=== PATIENT | female | born 1960 | race Caucasian/White ===

== ENCOUNTER 2016-08-01 18:15 | Observation (INO) | payer BC ==
--- NOTE | ~2016-08-01 | HP ---
History And Physical [facility] [address] [place]. [address] NAME: DONG DEAN JULY : 60 STATUS : ADM [place] PAT#: [id number] AGE: 56 ADM/REG DATE : 08/01/16 MR#: [id number] REPORT SERV DATE: 08/02/16 DICTATED BY: YVETTE BONE DATE: 08/02/16 REPORT STATUS : Draft TRANSCRIBED BY: MODMelissa DATE: 08/02/16 DATE OF ADMISSION: 08/01/2016 VASCULAR: Yao Mathew M.D. CHIEF COMPLAINT: Atypical chest pain, reproducible on exam. HISTORY OF PRESENT ILLNESS: A 56-year-old white female, who looks older than her stated age, with no known history of CAD, but with known peripheral vascular disease with previous left carotid endarterectomy by Dr. Mathew and scheduled arteriogram on 08/05/[address] 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 The patient and report a "blocked artery" in her right chest. The patient is quite drowsy from previous pain medication. Some history provided by her estranged , who is present at bedside. The patient reports that on 08/01 around 11 a.m., she experienced right-sided chest pain that did not radiate elsewhere. She holds her hand over her right-sided chest, indicating the location. She reports associated shortness of breath, nausea, diaphoresis, and dizziness. Denies belching. At its most intense at home, she rates it a 9/10. At time of interview in the [facility], she rates it a 10/10. She did take aspirin with no improvement in her symptoms. She could not find her nitroglycerin. She describes the pain as "constant" that does not radiate elsewhere. She reports no change in her activity level at home. The discomfort is easily reproducible on exam, eliciting a wince and withdrawal. The patient and her estranged confirm that she has an arteriogram scheduled at [facility] with Dr. Mathew on 08/05, and that has been confirmed on the surgery schedule. The patient reports a personal history of one heart attack with a stent placed to an unknown vessel in [address] Edward at [place]. The patient reports a history of a stroke with no clear deficit. Denies history of DVT or pulmonary embolus. The patient denies any recent fever or chills. No palpitations. No syncopal episodes. Denies PND or orthopnea. ER note indicates that Dr. Mathew was contacted regarding this patient's admission for documented left shoulder pain, but seemingly right shoulder pain given exam. Dr. Cortes has come by the [facility] to review the chart. Unfortunately, no records can easily be located regarding the workup for this upcoming arteriogram through Dr. Mathew's office. I have spoken to their nurse practitioner, Catalina, who confirms arteriogram scheduled for 08/05/2016, and the patient is on the endovascular schedule for that day to arrive at 1145 hours. If discharged home from this hospitalization, the patient will be instructed to keep that appointment. PAST MEDICAL HISTORY: 1. CAD. a. Self-reports [place] x1 and stent to unknown vessel at [place] by Dr. Edward. 2. Peripheral vascular disease. a. Left carotid endarterectomy in 07/[address] Mathew. b. Arteriogram scheduled for 08/05/[address] 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 History And Physical [address] [address] NAME: DONG DEAN JULY : 60 STATUS : ADM [place] PAT#: [id number] AGE: 56 ADM/REG DATE : 08/01/16 MR#: [id number] REPORT SERV DATE: 08/02/16 DICTATED BY: YVETTE BONE DATE: 08/02/16 REPORT STATUS : Draft TRANSCRIBED BY: MODMelissa DATE: 08/02/16 3. Self-reports history of stroke with no deficit. 4. Hypertension. 5. AODM. 6. Chronic kidney disease. a. Has not been followed by Nephrology. b. RANDY on CKD. 7. Unknown cholesterol status. 8. Neuropathy. PAST SURGICAL HISTORY: 1. Right foot surgery twice. 2. Left carotid endarterectomy in 2013. 3. Hysterectomy. 4. Tonsillectomy. 5. Cholecystectomy. SOCIAL HISTORY: She is . She has one child. She has never worked outside the home. She does not exercise. She denies tobacco, alcohol, or illicits. FAMILY HISTORY: No embolic events reported in first-degree relatives. Mother at 68 of Alzheimer's. Father of cirrhosis of the liver at 71. REVIEW OF SYSTEMS: A 14-point review of systems performed, significant for HPI including home blood sugars of 95 to 110 and does not have a sphygmomanometer to check her blood pressure. Otherwise, complete review of systems obtained and negative. ALLERGIES: PENICILLIN, RASH. DIPHENHYDRAMINE, FACIAL SWELLING. ULTRAM, HEADACHE. TORADOL, ITCHING. ZOFRAN, UNKNOWN. HOME MEDICATIONS: Tylenol p.r.n., Xanax 0.5 mg at bedtime, aspirin 81 mg daily, Raquel-Cary p.r.n., Neurontin 400 mg three times daily, Lantus insulin 20 units nightly, lisinopril 5 mg daily, nitroglycerin p.r.n., Icy Hot cream twice daily. PHYSICAL EXAMINATION: VITAL SIGNS: Blood pressure on arrival, right 143/71, left 190/77, this morning 116/56; pulse 64; respirations 20; temperature 97.5; O2 saturation 96% on room air. Height 5 feet 4 inches, weight 162 pounds, BMI 27.8. GENERAL: Cooperative, in no apparent distress. HEENT: Pupils 2 mm. Sclera nonicteric. Nares patent. Moist mucous membranes. No xanthelasma. NECK: Trachea midline. No thyromegaly. No JVD. No bruits. LYMPH: No cervical lymphadenopathy. No supraclavicular lymphadenopathy. CHEST: Tender to palpation on right chest, eliciting wince and withdrawal on exam. RESPIRATORY: Unlabored respirations. Breath sounds clear bilaterally to posterior auscultation. No wheezes or rhonchi. CARDIOVASCULAR: Regular rate. No murmur, rub, or gallop appreciated. Extremities with History And Physical [address] [place]. [address] NAME: DONG DEAN JULY : 60 STATUS : ADM [place] PAT#: [id number] AGE: 56 ADM/REG DATE : 08/01/16 MR#: [id number] REPORT SERV DATE: 08/02/16 DICTATED BY: YVETTE BONE DATE: 08/02/16 REPORT STATUS : Draft TRANSCRIBED BY: MODL DATE: 08/02/16 trace ankle edema. Pedal pulses 1+ and radial pulses 1+ bilaterally. ABDOMEN: Soft, nontender, nondistended. Normal bowel sounds auscultated throughout. No organomegaly. SKIN: Warm, dry extremities. No pallor or cyanosis. PSYCHIATRIC: Appropriate affect. Alert, oriented x3. LABORATORY DATA: Troponin less than 0.02 twice. Potassium 5.1, BUN 47, creatinine 1.92, glucose 145, magnesium 1.8. WBC 11.6, hemoglobin 12.9, hematocrit 38.7, platelet count 307,000. EKG, sinus rhythm, PRWP. Echo, 07/2013, EF 60%, mild diastolic dysfunction. MPI, 09/2014, no ischemia. ASSESSMENT AND PLAN: 1. Atypical chest pain in a patient with multiple risk factors. The patient has been observed in the CPOU overnight to rule out myocardial infarction with serial enzymes and serial EKGs and held n.p.o. We will proceed with a stress test, but with ongoing chest pain, the patient will be evaluated by Dr. Estes prior to stress testing. Given reproducibility and constant pain which seemingly is atypical for coronary artery disease, chest pain protocol may be appropriate. The patient will be discharged home if low risk, no ischemia. The patient does have a planned arteriogram on 08/05/[address] Mtahew for questionable right subclavian steal, although the patient and do not articulate those terms. The patient will follow up with her PCP and Dr. Mathew as appropriate. 2. Planned arteriogram with Dr. Mathew on 08/05/2016, possible right subclavian steal. 3. Acute kidney injury on chronic kidney disease. The patient is not followed by Nephrology. Today's creatinine 1.92, baseline 1.1 to 1.7. We will provide fluid bolus, discontinue SAPNA inhibitor, amlodipine 2.5 mg at discharge, recheck BMP prior to discharge. 4. Unknown cholesterol status. I will check a fasting lipid panel. 5. Hypertension. Monitor blood pressure. Amlodipine 2.5 mg at discharge. Discontinue SAPNA inhibitor given bump in creatinine of 1.92 with upcoming arteriogram and dye exposure planned. MICK/MIMIL Yvette Bone, MSN, SLAB INSPECTOR-BC / [id number] CC: Yvette Bone, MSN, SLAB INSPECTOR- Kenan Jha M.D. History And Physical [address] [address] NAME: DONG DEAN JULY : 60 STATUS : ADM [place] PAT#: [id number] AGE: 56 ADM/REG DATE : 08/01/16 MR#: [id number] REPORT SERV DATE: 08/02/16 DICTATED BY: YVETTE BONE DATE: 08/02/16 REPORT STATUS : Draft TRANSCRIBED BY: MODL DATE: 08/02/16 Yao Mathew II, M.D.
[2016-08-01 13:18] LABS: BASOPHILS 0.5 %; BASOPHILS ABSOLUTE 0.06 10/3/uL (0.0-0.16); EOSINOPHILS 2.3 %; EOSINOPHILS ABSOLUTE 0.27 10/3/uL (0.0-0.53); HEMATOCRIT 38.7 % (36.0-48.0); HEMOGLOBIN 12.9 g/dL (12.0-16.0); IMMATURE GRANULOCYTES 0.4 %; IMMATURE GRANULOCYTES ABSOLUTE 0.05 10/3/uL (0.0-0.11); LYMPHOCYTES 37.7 %; LYMPHOCYTES ABSOLUTE 4.36 10/3/uL (0.67-4.30); MEAN CORPUS HGB CONC 33.3 g/dL (32.0-36.0); MEAN CORPUSCULAR HEMOGLOB 29.1 pg (26.0-34.0); MEAN CORPUSCULAR VOLUME 87.2 fL (80-100); MEAN PLATELET VOLUME 10.4 fL (9.2-13.0); MONOCYTES ABSOLUTE 0.92 10/3/uL (0.21-1.20); NEUTROPHILS 51.1 %; NEUTROPHILS ABSOLUTE 5.89 10/3/uL (2.02-8.40); PLATELET COUNT 307 10/3/uL (150-400); RBC DISTRIBUTION WIDTH 12.9 % (12.0-16.0); RED CELL COUNT 4.44 10/6/uL (4.0-5.6); WHITE BLOOD CELLS 11.6 10/3/uL (4.5-10.5)
[2016-08-01 13:19] LABS: MANUAL DIFF NO %
[2016-08-01 13:27] LABS: PARTIAL THROMBO TIME 29.7 SEC (22.5-37.2); PROTIME (NOT ORD) 13.3 SEC (12.0-14.5)
[2016-08-01 13:38] LABS: BUN (BLOOD UREA NITROGEN) 47 MG/DL (6-23); CALCIUM, SERUM 9.8 MG/DL (8.5-10.4); CHEST PAIN PROFILE TAT 0 Hrs 26 Mins; CHLORIDE, SERUM 97 MMOL/L (96-112); CO2 (CARBON DIOXIDE) 30 MMOL/L (24-34); CREATININE 1.92 MG/DL (0.55-1.02); GFR AFRICAN AMERICAN 33 ML/MIN (>=60); GFR NON AFRICAN AMERICAN 29 ML/MIN (>=60); GLUCOSE, SERUM 145 MG/DL (60-99); POTASSIUM, SERUM 5.1 MMOL/L (3.5-5.3); SODIUM, SERUM 132 MMOL/L (135-148); TROPONIN I <0.02 NG/ML (<0.05)
[~2016-08-01 18:15] MED LIST: *UNABLE1; ACET500CAP PO; AMB5 PO; ANTIBIOTIC RX PO; ASA5GR PO; ASAB PO; ASABAYER PO; ASPERCREME TOP; BAC PO; BIAXIN5 PO; BISR PR; CELEXA20 PO; CORTISPORIN11 OT; COZ50 PO; COZAAR PO; DIL2TAB PO; FLONASE NAS; FLUCON1 PO; GGEXPUD PO; IBU400 PO; INSULIN SYRINGES; K250 PO; LAMICTAL150 MG PO; LANTUS FOR SC; LANTUS SC; LANTUSCART SC; LAXATIVE PO; LEVAQUIN750 MG PO; LEVEMFLXPN SC; LIPITOR10 PO; LIPITOR40 PO; LISINOPRIL PO; LORT7 PO; LORTAB10 PO; MAGOX4 PO; METAMUCIL CAN7 OZ PO; MIRALAXPKT PO; MOBIC15 MG PO; MUCINEX600 MG PO; NEUR300 PO; NEUR600 PO; NEUR800 PO; NORCO1 TA2 PO; NORV5 PO; NOVOLOG SC; NOVOLOG SQ; NOVOLOGMIX SC; NOVOPEN SC; PAX10 PO; PCET PO; PERCOCET1 TA4 PO; PERCOGESIC1 TAB PO; PHENERGAN PO; PR12.5 PO; PREMARIN PO; PRIN10 PO; PRIN2.5 PO; PRIN5 PO; PYR100B PO; PYR200 PO; REG5 PO; STERAPRED DS10 MG; TESS PO; TRILEP150 PO; VITAMIN E OTC PO; X25 PO; X5 PO; XANAX PO; XANAX1 MG PO; XANAX2 MG PO; ZESTRIL10 MG PO; ZOFRAN ODT4 MG PO; ZOL100 PO; [UNRECOGNIZED DRUG - REMARK] PO
[2016-08-01] MEDS ORDERED: X5 PO (19:27)
[2016-08-01] MEDS ORDERED: PRIN5 PO (19:27)
[2016-08-01] MEDS ORDERED: LANTUSCART SC (19:28)
[2016-08-01] MEDS ORDERED: NEUR400 PO (19:28)
[2016-08-01] MEDS ORDERED: ASAB PO (19:29)
[2016-08-01] MEDS ORDERED: ACET500CAP PO (19:29)
[2016-08-01] MEDS ORDERED: ALKA-SELTZER O1 EACH PO (19:30)
[2016-08-01] MEDS ORDERED: ICY HOT CREAM TOP (19:31)
[2016-08-01] MEDS ORDERED: NITROSTAT0.4 MG SL (19:32)
[2016-08-02 13:30] LABS: BUN (BLOOD UREA NITROGEN) 39 MG/DL (6-23); CALCIUM, SERUM 9.6 MG/DL (8.5-10.4); CHLORIDE, SERUM 99 MMOL/L (96-112); CHOL/HDL RATIO(NOT ORDER) 4.2 (0-5); CHOLESTEROL 259 MG/DL (< 200); CO2 (CARBON DIOXIDE) 30 MMOL/L (24-34); CREATININE 1.79 MG/DL (0.55-1.02); GFR AFRICAN AMERICAN 36 ML/MIN (>=60); GFR NON AFRICAN AMERICAN 31 ML/MIN (>=60); GLUCOSE, SERUM 196 MG/DL (60-99); HDL CHOLESTEROL 61 MG/DL (> 49); LDL CHOLESTEROL 154 MG/DL (< 130); NON-HDL CHOLESTEROL 198 MG/DL (< 160); POTASSIUM, SERUM 5.8 MMOL/L (3.5-5.3); SODIUM, SERUM 133 MMOL/L (135-148); TRIGLYCERIDE 223 MG/DL (< 150)
[2016-08-02] MEDS ORDERED: NORV25 PO (13:57)
[2016-08-02] MEDS ORDERED: LIPITOR40 PO (13:57)
[2016-08-11] MEDS ORDERED: NORV10 PO (10:09)
[2016-08-11] MEDS ORDERED: LOP50 PO (10:09)
[2016-08-11] MEDS ORDERED: VANCOMYCIN PO (10:11)
[2016-10-01] MEDS ORDERED: IBU800 PO (10:37)
[2016-10-01] MEDS ORDERED: MIDODRINE10 MG PO (10:38)
[2016-10-01] MEDS ORDERED: CORTEF20 MG PO (10:41)
== END 2016-08-02 14:14 | disposition home or self-care (01) ==
LOC: ER 18:15 → CDU1 22:19 → CDU2 23:33
PROVIDERS: Clinical Nurse Specialist; Emergency Medicine
DX: R07.89 Other chest pain (principal); I12.9 Hypertensive chronic kidney disease with stage 1 through stage 4 chronic kidney disease, or unspecified chronic kidney disease; E11.22 Type 2 diabetes mellitus with diabetic chronic kidney disease; N17.9 Acute kidney failure, unspecified; N18.9 Chronic kidney disease, unspecified; E11.40 Type 2 diabetes mellitus with diabetic neuropathy, unspecified; I25.10 Atherosclerotic heart disease of native coronary artery without angina pectoris; I25.2 Old myocardial infarction; I73.9 Peripheral vascular disease, unspecified; Z95.5 Presence of coronary angioplasty implant and graft; Z81.8 Family history of other mental and behavioral disorders; Z83.79 Family history of other diseases of the digestive system; Z86.73 Personal history of transient ischemic attack (TIA), and cerebral infarction without residual deficits; Z90.710 Acquired absence of both cervix and uterus; Z90.89 Acquired absence of other organs; Z90.49 Acquired absence of other specified parts of digestive tract; Z88.0 Allergy status to penicillin; Z88.5 Allergy status to narcotic agent; Z88.8 Allergy status to other drugs, medicaments and biological substances; Z79.82 Long term (current) use of aspirin; Z79.4 Long term (current) use of insulin; Z79.899 Other long term (current) drug therapy; Z98.890 Other specified postprocedural states
CPT/HCPCS: 71020; 78452; 80048; 80061; 82962; 83735; 84484; 85025; 85610; 85730; 93005; 93017; 96374; 96375; 96376; 99285; A9270-GY; A9502; G0378; J0153; J0280; J2405; J2550